=== PATIENT | female | born 1950 | race Caucasian/White ===

== ENCOUNTER 2018-11-28 14:53 | Observation (INO) | payer OTHER, MEDICARE ==
[2018-11-28] MEDS ORDERED: NS 1,000 ML IV ONE (15:07)
--- NOTE | 2018-11-28 15:08 | EDPHY ---
H & P Stated Complaint: PCP abdominal pain had CT scan which showed possible abcess Time Seen by Provider: 11/28/18 15:07 HPI/ROS: CHIEF COMPLAINT: Abdominal pain HISTORY OF PRESENT ILLNESS: The patient presents emergency department with a several week history of abdominal pain. The patient is a her primary care provider today who ordered a CT scan which demonstrated likely appendiceal abscess. The patient reports that initially her pain was quite severe. It is now currently well managed. She denies any loss of appetite currently. She had a normal bowel movement today. The patient denies significant past surgical history. REVIEW OF SYSTEMS: A comprehensive 10 point review of systems is otherwise negative aside from elements mentioned in the history of present illness. Source: Patient - Personal History Current Tetanus/Diphtheria Vaccine: Unsure Current Tetanus Diphtheria and Acellular Pertussis (TDAP): Unsure - Medical/Surgical History Hx Asthma: No Hx Chronic Respiratory Disease: No Hx Diabetes: No Hx Cardiac Disease: No Hx Renal Disease: No Hx Cirrhosis: No Hx Alcoholism: No Hx HIV/AIDS: No Hx Splenectomy or Spleen Trauma: No - Social History Smoking Status: Never smoked - Physical Exam Exam: General Appearance: Alert, no distress Eyes: Pupils equal and round no pallor or injection ENT, Mouth: Mucous membranes moist Respiratory: There are no retractions, lungs are clear to auscultation Cardiovascular: Regular rate and rhythm Gastrointestinal: Tenderness to deep palpation noted in the right lower quadrant Neurological: 5/5 strength noted all 4 extremities Skin: Warm and dry, no rashes Musculoskeletal: Neck is supple nontender Extremities: symmetrical, full range of motion Constitutional: Initial Vital Signs Temperature (C) 36.7 C 11/28/18 14:55 Heart Rate 81 11/28/18 14:55 Respiratory Rate 18 11/28/18 14:55 Blood Pressure 116/51 L 11/28/18 14:55 O2 Sat (%) 96 11/28/18 14:55 O2 Delivery Mode Room Air Allergies/Adverse Reactions: Sulfa (Sulfonamide Antibiotics) Allergy (Verified 11/28/18 15:00) Home Medications: Medication Instructions Recorded Mesalamine [Asacol Hd] 11/28/18 Rowasa 11/28/18 Medical Decision Making - Diagnostics Imaging Results: Abd Pel W IV Contrast History: K51.90 Ulcerative colitis, unspecified, without complications K59.00 Constipation, unspecified R10.829 Rebound abdominal tenderness, unspecified site R10.9 Unspecified abdominal pain. Comparison: None available. Technique: Multiplanar images were acquired after the administration of 80 mL intravenous contrast. Dose reduction techniques were utilized. Findings: Lung bases are clear. The liver, spleen, bilateral adrenals, pancreas, and gallbladder are within normal limits. The kidneys are normal in size and morphology, without hydronephrosis or hydroureter. Cyst is seen in the upper pole left kidney. The colon and small bowel are normal in caliber, without evidence of obstruction. There is mild periappendiceal fat stranding as well as dilatation of the appendix to 9.1 mm. Loculated collections are seen adjacent to the appendiceal tip (series 4, images 187 and 198), measuring 1.6 x 1.1 cm superiorly and 1.4 x 1.1 cm inferiorly. There is submucosal fat deposition within the rectum which can be seen in chronic inflammatory conditions. The bladder is partially distended and grossly normal. The uterus is intact and there are likely small fibroids. Nonenlarged retroperitoneal and mesenteric lymph nodes are appreciated. There are degenerative changes of the lower lumbar spine. Impression: Appendiceal inflammation with tiny periappendiceal abscesses measuring up to 1.6 cm, too small to drain. Findings likely represent ED Course/Re-evaluation: Patient presents the ED with 3 weeks of abdominal pain and CT scan which demonstrates a appendiceal abscess. The patient was noted to have tenderness on exam to deep palpation. Patient's vital signs are stable. I reviewed the results of her outpatient CT scan. Consultation was made with Dr. Ronn Enrique from General surgery. Patient received IV Invanz for a intra-abdominal abscess. Plan will be admission to the hospital for exploratory laparotomy. Differential Diagnosis: Differential diagnosis considered includes appendicitis, mesenteric adenitis, perforation, obstruction - Data Points Laboratory Results: Laboratory Results 11/28/18 15:20 11/28/18 15:20 11/28/18 11/28/18 15:20 15:20 WBC 9.38 10^3/uL 10^3/uL (3.80-9.50) RBC 4.81 10^6/uL 10^6/uL (4.18-5.33) Hgb 14.6 g/dL g/dL (12.6-16.3) Hct 44.1 % % (38.0-47.0) MCV 91.7 fL fL (81.5-99.8) MCH 30.4 pg pg (27.9-34.1) MCHC 33.1 g/dL g/dL (32.4-36.7) RDW 13.4 % % (11.5-15.2) Plt Count 499 10^3/uL H 10^3/uL (150-400) MPV 8.7 fL fL (8.7-11.7) Neut % (Auto) 55.8 % % (39.3-74.2) Lymph % (Auto) 34.8 % % (15.0-45.0) Frederick % (Auto) 5.5 % % (4.5-13.0) Eos % (Auto) 3.1 % % (0.6-7.6) Baso % (Auto) 0.6 % % (0.3-1.7) Nucleat RBC Rel Count 0.0 % % (0.0-0.2) Absolute Neuts (auto) 5.23 10^3/uL 10^3/uL (1.70-6.50) Absolute Lymphs (auto) 3.26 10^3/uL H 10^3/uL (1.00-3.00) Absolute Monos (auto) 0.52 10^3/uL 10^3/uL (0.30-0.80) Absolute Eos (auto) 0.29 10^3/uL 10^3/uL (0.03-0.40) Absolute Basos (auto) 0.06 10^3/uL 10^3/uL (0.02-0.10) Absolute Nucleated RBC 0.00 10^3/uL 10^3/uL (0-0.01) Immature Gran % 0.2 % % (0.0-1.1) Immature Gran # 0.02 10^3/uL 10^3/uL (0.00-0.10) Sodium 137 mEq/L mEq/L (135-145) Potassium 3.9 mEq/L mEq/L (3.5-5.2) Chloride 101 mEq/L mEq/L (97-110) Carbon Dioxide 26 mEq/l mEq/l (22-31) Anion Gap 10 mEq/L mEq/L (6-14) BUN 15 mg/dL mg/dL (7-23) Creatinine 0.6 mg/dL mg/dL (0.6-1.0) Estimated GFR > 60 Glucose 111 mg/dL H mg/dL (70-100) Calcium 9.3 mg/dL mg/dL (8.5-10.4) Medications Given: Discontinued Medications Sodium Chloride (Ns) 1,000 mls @ 0 mls/hr IV EDNOW ONE; Wide Open PRN Reason: Protocol Stop: 11/28/18 15:08 Last Admin: 11/28/18 15:31 Dose: 1,000 mls Departure - Departure Disposition: [facility] Inpatient Acute Clinical Impression: Appendicitis with abscess Condition: Good Referrals: Martin Graham DO [Primary Care Provider] - As per Instructions
[2018-11-28 15:38] LABS: PLATELET COUNT 499 10^3/uL (150-400)
[2018-11-28] MEDS ORDERED: ERTAPENEM 1 GM in NS 100 ML IV ONE (15:58)
[2018-11-28] MEDS ORDERED: LR 1,000 ML IV SCH ×2 (16:30→21:00)
--- NOTE | 2018-11-28 17:13 | GHP ---
[f rep st] HISTORY AND PHYSICAL DATE OF ADMISSION: 11/28/2018 CHIEF COMPLAINT: Right lower quadrant pain. PRESENT ILLNESS: The patient has had 3 weeks of vague abdominal pain, not particularly severe today, but she saw her family doctor last week and they ordered a CT scan, which was scheduled a week out a nd done today. This clearly shows inflammatory changes around the appendix and a possible area of ru pture, a 1.6 cm abscess near the tip of the appendix. No other real important findings. ALLERGIES: Sulfa. CURRENT MEDICATIONS: None. She previously was taking Asacol and Rowasa for history of ulcerative co litis or ulcerative proctitis, which is not active right now. REVIEW OF SYSTEMS: Denies asthma, heart trouble, heart attacks, diabetes, epilepsy, rheumatic fever. SOCIAL HISTORY: Alcohol use none. Smoking none. Retired masseuse. PREVIOUS SURGERY: None. PHYSICAL EXAM: GENERAL: Petite female in minimal distress. HEENT: No scleral icterus. Pharynx cl ear. NECK: Supple without adenopathy. LUNGS: Clear. HEART: Normal S1, S2 without murmur. ABDOM EN: Soft, benign, a touch of rebound, but no real guarding in the right lower quadrant. No masses a re felt. EXTREMITIES: Unremarkable. NEUROLOGIC: Exam unremarkable. LABORATORY DATA: White blood count is 9.3. I did go over the films in detail with the radiologist and it is unequivocal acute appendicitis. RECOMMENDATIONS: Laparoscopic appendectomy. The patient understands there is risk of bleeding, infe ction, need for an open operation, etc. /[id number]/MODL
[2018-11-28] MEDS ORDERED: ONDANSETRON 4 MG/2 ML VIAL ONE (19:39)
[2018-11-28] MEDS ORDERED: SUGAMMADEX SODIUM 200 MG/2 ML VIAL IVP ONE (19:39)
[2018-11-28] MEDS ORDERED: fentaNYL 100 MCG/2 ML INJ ONE ×2 (19:39→21:07)
[2018-11-28] MEDS ORDERED: LIDOCAINE 2% 5 ML SDV ONE (19:39)
[2018-11-28] MEDS ORDERED: ROCURONIUM 50 MG/5 ML VIAL ONE (19:39)
[2018-11-28] MEDS ORDERED: DEXAMETHASONE 4 MG/ML VIAL ONE (19:39)
[2018-11-28] MEDS ORDERED: PROPOFOL 200 MG/20 ML VIAL ONE (19:40)
[2018-11-28] MEDS ORDERED: BUPIVACAINE 0.25% 30 ML SDV ONE (19:41)
[2018-11-28] MEDS ORDERED: BUPIVACAINE/EPI 0.5% 30 ML SDV ONE (19:54)
[2018-11-28] MEDS ORDERED: HYDROmorphONE/DILAUDID 2 MG/ML INJ IVP PRN (20:00)
[2018-11-28] MEDS ORDERED: PHENYLEPHRINE HCL 100 MCG/ML SYR IVP PRN (20:00)
[2018-11-28] MEDS ORDERED: MEPERIDINE 25 MG/0.5 ML AMP IVP PRN (20:00)
[2018-11-28] MEDS ORDERED: PROMETHAZINE HCL 25 MG/ML INJ IVP PRN (20:00)
[2018-11-28] MEDS ORDERED: LR 500 ML IV PRN (20:00)
[2018-11-28] MEDS ORDERED: METOCLOPRAMIDE 10 MG/2 ML VIAL IVP PRN (20:00)
[2018-11-28] MEDS ORDERED: ONDANSETRON 4 MG/2 ML VIAL IVP PRN (20:00)
[2018-11-28] MEDS ORDERED: fentaNYL 100 MCG/2 ML INJ IVP PRN (20:00)
[2018-11-28] MEDS ORDERED: oxyCODONE IR 5 MG TAB PO PRN (20:00)
[2018-11-28] MEDS ORDERED: NALOXONE HCL 0.4 MG/ML INJ IVP PRN (20:00)
--- NOTE | 2018-11-28 20:00 | POSTANESTH ---
Post Anesthetic Evaluation Cardiovascular Status: Normal, Stable Respiratory Status: Normal, Stable Level of Consciousness/Mental Status: Can Participate in Eval Pain Control: Adequate, Prn Tx Ordered Nausea/Vomiting Control: Adequate, Prn Tx Ordered Complications Possibly Related to Anesthesia: None Noted
--- NOTE | 2018-11-28 20:00 | PDANEPAE ---
ANE Past Medical History - Cardiovascular History Hx Hypertension: No Hx Arrhythmias: No Hx Chest Pain: No - Pulmonary History Hx COPD: No Hx Asthma/Reactive Airway Disease: No Hx Oxygen in Use at Home: No Hx Sleep Apnea: No Sleep Apnea Screening Result - Last Documented: Negative - Endocrine History Hx Diabetes: No - Renal History Hx Renal Disorders: No - Liver History Hx Hepatic Disorders: No - Neurological & Psychiatric Hx Hx Neurological and Psychiatric Disorders: No - GI History Hx Gastrointestinal Disorders: Yes Gastrointestinal History Comment: Ulcerative colitis - Chronic Pain History Chronic Pain: No ANE Review of Systems Review of Systems: ANE Patient History - Allergies Allergies/Adverse Reactions: Sulfa (Sulfonamide Antibiotics) Allergy (Severe, Verified 11/28/18 17:15) Rash NSAIDS (Non-Steroidal Anti-Inflamma Allergy (Intermediate, Verified 11/28/18 17: 16) Abdominal Cramping - Home Medications Home Medications: Mesalamine [Asacol Hd] 800 mg PO BID PRN 11/28/18 [Last Taken Unknown] Mesalamine [Rowasa 4 gm Enema (*)] 4 gm MN PRN PRN 11/28/18 [Last Taken 11/25/18 ] Terbinafine HCl [LamISIL AT Cream (*)] 1 vianney TP BID 11/28/18 [Last Taken ] - NPO status NPO Since - Liquids (Date): 11/28/18 NPO Since - Liquids (Time): 14:30 NPO Since - Solids (Date): 11/28/18 NPO Since - Solids (Time): 14:30 - Smoking Hx Smoking Status: Never smoked ANE Labs/Vital Signs - Labs Result Diagrams: 11/28/18 15:20 11/28/18 15:20 - Vital Signs Blood Pressure: 124/57 Heart Rate: 65 Respiratory Rate: 15 O2 Sat (%): 96 Height: 157.48 cm Weight: 51.256 kg ANE Physical Exam - Airway Neck exam: FROM Mallampati Score: Class 1 Mouth exam: normal dental/mouth exam - Pulmonary Pulmonary: no respiratory distress, no rales or rhonchi, clear to auscultation - Cardiovascular Cardiovascular: regular rate and rhythym, no murmur, rub, or gallop - ASA Status ASA Status: II, E ANE Anesthesia Plan Anesthesia Plan: general endotracheal anesthesia
--- NOTE | 2018-11-28 20:58 | POSTOPPROG ---
Post Op Note Date of Operation: 11/28/18 Surgeon: Ronn Enrique Pre-op Diagnosis: appendicitis, ruptured Post-op Diagnosis: same Indication: same Procedure: appendicromy for ruptured appendix with localized abscess Inf/Abcess present in the surg proc area at time of surgery?: Yes Depth: Organ Space EBL: Minimal
[2018-11-28] MEDS ORDERED: LR 1,000 ML IV ONE (21:19)
--- NOTE | 2018-11-28 21:49 | GOP ---
[f rep st] OPERATIVE REPORT DATE OF OPERATION: SURGEON: Ronn Enrique MD PREOPERATIVE DIAGNOSIS: Acute appendicitis, ruptured. POSTOPERATIVE DIAGNOSIS: Acute appendicitis, ruptured. PROCEDURE PERFORMED: Laparoscopic appendectomy for a ruptured appendicitis. FINDINGS: INDICATIONS: 68-year-old female with CT documented appendicitis with small abscess. DESCRIPTION OF PROCEDURE: General anesthetic. The abdomen scrubbed with ChloraPrep, draped in the u sual sterile fashion. Infraumbilical incision made. Veress needle used to achieve a pneumoperitoneu m. A 12 mm port placed. Two additional 5 mm ports were placed. The viscera were examined. The vianney endix was found to be adherent to the right fallopian tube and the small bowel. Careful blunt dissec tion eventually these structures. The base of the appendix was easily identified. It was normal in appearance. It was amputated flush on the cecum with an Endo-[place] stapler, after which the mesoappendix was harvested in a retrograde fashion. There was an abscess that had perforated into th e mesoappendix which seemed more mucinous than purulent. This was aspirated free. Eventually, when the appendix was , it was placed in an Endopouch and brought out through the fascial defect at the umbilicus. There was no bleeding in the right lower quadrant. There was essentially no conta mination after this abscess had been drained from the mesentery. No drain was left. The gas was yaritza jordan from the abdomen. The fascial defect at the umbilicus closed with 0 Vicryl, skin with 4-0 Vicryl and Dermabond. The patient tolerated the procedure well. /[id number]/MODL
[2018-11-28] MEDS: HYDROCODONE/APAP 5/325 TAB PO PRN (22:00)
[2018-11-29] MEDS ORDERED: PNEUMOC 13-VAL CONJ-DIP CRM/PF 0.5 ML SYR (PREVNAR 13) IM ONE (08:46)
[2018-11-29] MEDS ORDERED: ERTAPENEM 1 GM in NS 100 ML IV SCH (09:00)
[2018-11-29] MEDS: HYDROCODONE/APAP 5/325 TAB PO PRN (09:26)
--- NOTE | 2018-11-29 10:31 | GDS ---
[f rep st] DISCHARGE SUMMARY PRESENT ILLNESS: The patient was admitted with a CT-documented acute appendicitis. HOSPITAL COURSE: The patient underwent appendectomy. It was found to be ruptured in the mesoappendi x. There was minimal contamination. It was felt reasonable to discharge her on the first postoperat maya day. FINAL DIAGNOSIS: Appendicitis, contained rupture. OPERATION: Laparoscopic appendectomy for ruptured appendicitis. DISPOSITION: Home. Follow up with Dr. Enrique in a week. /[id number]/MODL
[2018-11-29 11:33] VITALS: BP 90/46
== END 2018-11-29 12:11 | disposition home or self-care (01) ==
LOC: INTOOBSV 15:57 → F3E 17:02
PROVIDERS: ADMIT Surgery; ATTEND Surgery
PROC: 0DTJ4ZZ Resection of Appendix, Percutaneous Endoscopic Approach (ICD-10-PCS; principal; 2018-11-28 18:00)
DX: K35.33 Acute appendicitis with perforation, localized peritonitis, and gangrene, with abscess (principal); Z23 Encounter for immunization; Z87.19 Personal history of other diseases of the digestive system
CPT/HCPCS: 44970; 88304; G0378; J1100; J1335; J2405; J2704; J3010; 88323-90; 88342; 96374; Q9967

== ENCOUNTER → 2018-11-28 | Outpatient (CLI) | payer OTHER, MEDICARE ==
[~2018-11-28] MED LIST: IOPAMIDOL (ISOVUE-300) 100 ML BTL ONE
== END ==
LOC: FIMAGING 12:34
PROVIDERS: ATTEND Family Medicine
DX: K51.90 Ulcerative colitis, unspecified, without complications (principal); K35.33 Acute appendicitis with perforation, localized peritonitis, and gangrene, with abscess; K59.00 Constipation, unspecified
CPT/HCPCS: 74177; Q9967